=== PATIENT | female | born 1950 | race Caucasian/White ===

== ENCOUNTER 2017-11-01 14:27 | Emergency (ER) | payer OTHER ==
[~2017-11-01] VITALS: Ht 154.9 cm; Wt 49.6 kg
[~2017-11-01 14:27] MED LIST: AMOXICILLIN500 MG PO; AMPICILLIN500 M1; CEFTIN250 MG PO; Levaquin PO; PERCOCET 10-321 EACH PO; PREDNISONE20 MG PO; Percocet 5/325,Endoc PO; ZITHROMAX250 MG PO; ZOFRAN ODT8 MG PO
[2017-11-01] MEDS ORDERED: NAPROSYN500 MG PO (16:48)
[2017-11-01 16:52] VITALS: BP 118/60
== END 2017-11-01 16:53 | disposition home or self-care (01) ==
LOC: EME 14:27
DX: S93.401A Sprain of unspecified ligament of right ankle, initial encounter (principal); S90.01XA Contusion of right ankle, initial encounter; W11.XXXA Fall on and from ladder, initial encounter; G89.29 Other chronic pain; J44.9 Chronic obstructive pulmonary disease, unspecified; F17.210 Nicotine dependence, cigarettes, uncomplicated
CPT/HCPCS: 73610; 99281; 99284